=== PATIENT | male | born 1970 | race African-American/Black ===

== ENCOUNTER 2022-09-09 11:55 | Day surgery (SDC) | payer BC ==
[2022-09-08 11:10] VITALS: BMI 31.6
[~2022-09-09 11:55] MED LIST: DEXAMETHASONE SOD PHOSPHATE 4 MG/ML 1 ML VIAL IV ONE; HYDROmorphone 0.5 MG/0.5 ML SYRINGE IVP PRN; LACTATED RINGERS 1,000 ML IV SCH; ONDANSETRON 4 MG/2 ML VIAL IVP ONE
[2022-09-09] MEDS ORDERED: LACTATED RINGERS 1,000 ML IV ONE (12:28)
[2022-09-09] MEDS ORDERED: ePHEDrine 50 MG/ML 1 ML VIAL ONE (13:58)
[2022-09-09] MEDS ORDERED: HYDROmorphone (PF) 1 MG/ML ONE (13:58)
[2022-09-09] MEDS ORDERED: LIDOCAINE 2% INJ 20 MG/ML (2 ML VIAL) ONE (13:58)
[2022-09-09] MEDS ORDERED: MIDAZOLAM 2 MG/2 ML VIAL ONE (13:58)
[2022-09-09] MEDS ORDERED: fentaNYL (PF) 50 MCG/ML 2 ML AMP ONE (13:58)
[2022-09-09] MEDS ORDERED: PROPOFOL 10 MG/ML 20 ML VIAL IV ONE (13:58)
[2022-09-09] MEDS ORDERED: BUPIVACAINE (PF) 0.25% 30 ML VIAL SQ ONE ×3 (14:17→14:57)
[2022-09-09 15:15] VITALS: RESP 16; TEMP 97.3
--- NOTE | 2022-09-09 15:15 | P.OP ---
Date of Procedure: 09/09/22 Preoperative Diagnosis: Hallux limitus right foot Postoperative Diagnosis: Same Procedure(s) Performed: Ricketts bunionectomy right foot Anesthesia: GETA Surgeon: Mark Haro Indications for Procedure: pain with ambulation and use of enclosed shoe gear Operative Findings: Degenerative arthritis first metatarsal phalangeal joint Description of Procedure: On the date of surgery the patient was taken to the operating room in good condition placed on the operating table in supine position where an IV was started and LMA anesthesia was administered. The patient's right foot and ankle were then prepped and draped in the usual aseptic manner and over heavy web roll padding an ankle tourniquet was placed above the malleoli of the patient's right ankle the patient's right foot and ankle were then elevated and exsanguinated of blood and after approximately 1 minutes. A time the ankle tourniquet was inflated to approximately 250 mmHg At this time attention was directed to the dorsal aspect of the first metatarsal phalangeal joint where an approximately 6 cm dorsal linear incision was made the incision was deepened via sharp dissection down through the level of the subcutaneous tissue layers all neurovascular structures encountered were identified isolated and were retracted and any bleeding vessels were clamped and electrocauterized dissection was then carried deep down to level PERIOSTEAL STRUCTURES OVERLYING THE FIRST METATARSAL PHALANGEAL JOINT THESE WERE INCISED IN LINE WITH THE ORIGINAL SKIN INCISION AND UNDERSCORED AND RETRACTED FROM THE UNDERLYING BONE SPANNING THE LENGTH OF THE FIRST METATARSAL PHALANGEAL JOINT A FLAP WAS THEN FASHIONED ALONG THE DISTAL MEDIAL ASPECT OF THE PROXIMAL PHALANX TO BE INTERPOSED BETWEEN THE PROXIMAL PHALANX AND THE HEAD OF THE FIRST METATARSAL. LYSING OSCILLATING BONE SAW THE HYPEROSTOSIS PRESENT ON THE MEDIAL SIDE OF THE FIRST METATARSAL PHALANGEAL JOINT WAS RESECTED FLUSH IN LINE WITH THE SHAFT OF THE FIRST METATARSAL AND HYPERTROPHIED BONE AND BONE OSTEOPHYTES ON THE DORSAL ASPECT OF THE METATARSAL HEAD WERE AGAIN DOWN TO normal level metatarsal shaft the base of the proximal phalanx was then resected into degree angle to the shaft of the proximal phalanx and removed in total from the surgical site the osteotomy dated was left a little greater on the distal aspect to make up for disposition of the first metatarsal head. Throughout the surgical procedure copious amounts of sterile saline solution was used to irrigate the surgical site passed a structures were then coaptated and maintained a sewing the flap created along the medial side of the proximal phalanx to the lateral capsule metatarsal phalangeal joint remaining capsular and periosteal structures were coaptated and maintained utilizing combination of 201 3-0 Vicryl suture was then closed utilizing 4-0 nylon. Adaptic was used to cover the incision with sterile 4 x 4's four-inch conformer and 4 inch Coban ankle tourniquet to the patient's right ankle was deflated and adequate hemostatic return was seen in all digits of the right foot the patient tolerated the surgery and anesthesia well was taken recovery room in good postoperative condition
[2022-09-09 16:08] VITALS: BP 150/88; PULSE 82
== END 2022-09-09 16:36 | disposition home or self-care (01) ==
LOC: OR 11:55
PROVIDERS: ATTEND Podiatrist Foot & Ankle Surgery
DX: M19.071 Primary osteoarthritis, right ankle and foot (principal); M20.5X1 Other deformities of toe(s) (acquired), right foot; Z79.1 Long term (current) use of non-steroidal anti-inflammatories (NSAID)
CPT/HCPCS: 28292; J2250; J1100; J0690; J2405; J3010; J1170; J2704; J2001

== ENCOUNTER 2023-01-21 09:27 | Day surgery (SDC) | payer BC ==
[2023-01-20 11:29] VITALS: BMI 27.5
[~2023-01-21 09:27] MED LIST changes: -DEXAMETHASONE SOD PHOSPHATE 4 MG/ML 1 ML VIAL IV ONE; -HYDROmorphone 0.5 MG/0.5 ML SYRINGE IVP PRN; -ONDANSETRON 4 MG/2 ML VIAL IVP ONE
[2023-01-21 10:19] VITALS: TEMP 97.4
[2023-01-21] MEDS ORDERED: PROPOFOL 10 MG/ML 20 ML VIAL IV ONE (11:53)
[2023-01-21] MEDS ORDERED: LIDOCAINE 2% INJ 20 MG/ML (2 ML VIAL) ONE (11:53)
--- NOTE | 2023-01-21 12:00 | P.GSHP ---
History of Present Illness H&P Date: 01/21/23 Chief Complaint: Screening colonoscopy Is a 52-year-old male presents today for screening colonoscopy. Patient denies any significant GI complaints. Past Medical History Past Medical History: Osteoarthritis (OA) History of Any Multi-Drug Resistant Organisms: None Reported Past Surgical History: Orthopedic Surgery Additional Past Surgical History / Comment(s): Lt Knee surgery- ARTHROSCOPIC, LEFT SHOULDER SURGERY, BUNIONECTOMY-RIGHT Past Anesthesia/Blood Transfusion Reactions: No Reported Reaction Past Psychological History: No Psychological Hx Reported Smoking Status: Never smoker Past Alcohol Use History: Occasional Past Drug Use History: None Reported - Past Family History Mother Family Medical History: No Reported History Medications and Allergies Home Medications Medication Instructions Recorded Confirmed Type No Known Home Medications 01/20/23 01/20/23 History Allergies Allergy/AdvReac Type Severity Reaction Status Date / Time No Known Allergies Allergy Verified 01/21/23 10:09 Surgical - Exam Vital Signs Temp Pulse Resp BP Pulse Ox 97.4 F L 61 18 153/83 98 01/21/23 10:15 01/21/23 10:15 01/21/23 10:15 01/21/23 10:15 01/21/23 10:15 - General well developed, well nourished, no distress - Eyes PERRL - ENT normal pinna - Neck no masses - Respiratory normal expansion - Cardiovascular Rhythm: regular - Abdomen Abdomen: soft, non tender Assessment and Plan Assessment: We'll perform screening colonoscopy
--- NOTE | 2023-01-21 12:10 | P.OP ---
Date of Procedure: 01/21/23 Preoperative Diagnosis: Screening: Postoperative Diagnosis: Normal colonoscopy Procedure(s) Performed: Colonoscopy Anesthesia: MAC Surgeon: Zurdo Lance Pathology: none sent Condition: stable Disposition: PACU Description of Procedure: PROCEDURE: The patient was placed on the endoscopy table in the lateral position. Digital rectal examination was performed which revealed no abnormalities. The prostate was symmetrical without nodules. Flexible colonoscope was then placed in the patient's anus and passed throughout the entire colon. The ileocecal valve was visualized. The cecum, ascending, transverse, descending and sigmoid colon were normal. The rectum was normal as well. There were no masses, polyps or diverticula noted in the entire colon. SUMMARY OF FINDINGS: Normal colonoscopy.
[2023-01-21 12:25] VITALS: RESP 16
[2023-01-21 12:39] VITALS: BP 143/78; PULSE 60
== END 2023-01-21 12:42 | disposition home or self-care (01) ==
LOC: ORWHC2ENDO 09:27
PROVIDERS: ATTEND Surgery
DX: Z12.11 Encounter for screening for malignant neoplasm of colon (principal); F12.90 Cannabis use, unspecified, uncomplicated; M19.90 Unspecified osteoarthritis, unspecified site; F10.20 Alcohol dependence, uncomplicated
CPT/HCPCS: 45378; J2704; J2001

== ENCOUNTER → 2023-07-14 | Day surgery (SDC) | payer BC ==
[~2023-07-14] MED LIST changes: +BUPIVACAINE (PF) 0.25% 30 ML VIAL SQ ONE; +DEXAMETHASONE SOD PHOSPHATE 4 MG/ML 1 ML VIAL IV ONE; +GLYCOPYRROLATE 0.2 MG/ML 2 ML VIAL ONE; +HYDROmorphone 0.5 MG/0.5 ML SYRINGE IVP PRN; +KETAMINE HCL IN 0.9 % NACL 50 MG/5 ML SYRINGE ONE; +LIDOCAINE 1% (10MG/ML) FOR IV START INTRADERMA PRN; +LIDOCAINE 1% INJ 10MG/ML (20 ML MDV) SQ ONE; +MIDAZOLAM 2 MG/2 ML VIAL ONE; +ONDANSETRON 4 MG/2 ML VIAL IVP ONE; +PROPOFOL 10 MG/ML 20 ML VIAL IV ONE; +droPERidol 5 MG/2 ML VIAL IVP ONE; +fentaNYL (PF) 50 MCG/ML 2 ML AMP ONE
[2023-07-14 15:23] VITALS: RESP 16; TEMP 97
--- NOTE | 2023-07-14 15:25 | P.OP ---
Date of Procedure: 07/14/23 Preoperative Diagnosis: Hallux limitus left foot Postoperative Diagnosis: Same Procedure(s) Performed: Ricketts bunionectomy procedure left foot Surgeon: Mark Haro Indications for Procedure: Pain and limited motion first MPJ left foot Operative Findings: Severe degenerative arthritis first metatarsal phalangeal joint left foot Description of Procedure: On the date of surgery the patient was taken to the operating room in good condition placed on the operating table in supine position where an IV was started and adequate IV anesthetic agents were utilized anesthesia was then further supplemented with 12 mL of 0.25% plain Marcaine given in a Linn block to the first ray complex of the patient's left foot. The patient's left foot and ankle were then prepped and draped in the usual aseptic manner. Over heavy web roll padding an ankle tourniquet was placed above the malleoli of the patient's left ankle. Left foot and ankle were then elevated and exsanguinated of blood and after 2 minutes. A time the ankle tourniquet was inflated to 250 mmHg. At this time attention was directed to the dorsal aspect of the first metatarsal phalangeal joint where an approximately 6.5 cm dorsal linear incision was made the incision was deepened via sharp dissection down through the level of subcutaneous tissue layers all neurovascular structures encountered were identified isolated and were retracted and any bleeding vessels were clamped and electrocauterized dissection was then carried deep via sharp and blunt technique down to the level PERIOSTEAL STRUCTURES OVERLYING THE FIRST METATARSAL PHALANGEAL JOINT THESE WERE INCISED IN LINE WITH THE ORIGINAL SKIN INCISION AND UNDERSCORED AND RETRACTED FROM THE UNDERLYING BONE FLAP WAS THEN DISSECTED THE PROXIMAL PHALANX AREA BE USED THIS SOFT TISSUE SPACER AND THE PROCEDURE THROUGHOUT THE SURGERY COPIOUS AMOUNTS OF STERILE SALINE SOLUTION WAS USED TO IRRIGATE THE SURGICAL SITE. FIGHTS WERE THEN RESECTED FLUSH OF THE FIRST METATARSAL PHALANGEAL JOINT AND REMOVED IN TOTAL FROM THE SURGICAL SITE AN OBLIQUE OSTEOTOMY WAS THEN PERFORMED AT THE BASE OF THE PROXIMAL PHALANX WITH THE MEDIAL SIDE BENDING FARTHER DISTALLY THAN THE LATERAL SIDE TO TRY TO CORRECT THE VALGUS DEFORMITY PRESENT OF THE GREAT TOE THE OSTEOTOMY WAS THROUGH AND THROUGH OSTEOTOMY IN THE BASE OF PROXIMAL PHALANX WAS REMOVED IN TOTAL FROM THE SURGICAL SITE Periosteal Flap Was Then Sutured to the Lateral Side of the Joint Capsule of the First Metatarsal Phalangeal Joint Subcutaneous Tissues Were Coaptated and Maintained Utilizing 201 3-0 Vicryl Skin Was Then Closed Utilizing 4-0 Nylon Simple Interrupted Suture Surgical Site Was Covered with Adaptic Kerlix Fluffs Four-Inch Conformer and 4 Inch Coban an Ankle Tourniquet to the Patient's Left Foot Was Deflated Adequate Hemostatic Return Was Seen in All Digits of the Patient's Left Foot.
[2023-07-14 16:19] VITALS: BP 135/82; PULSE 50
== END ==
LOC: OR 11:37
PROVIDERS: ATTEND Podiatrist Foot & Ankle Surgery
DX: M20.5X2 Other deformities of toe(s) (acquired), left foot (principal); F12.90 Cannabis use, unspecified, uncomplicated; Z79.899 Other long term (current) drug therapy
CPT/HCPCS: 28292; J2250; J1100; J0690; J2405; J2001; J3010; J2704; J0665

== ENCOUNTER 2024-12-22 11:37 | Emergency (ER) | payer BC ==
[2024-12-22 12:52] LABS: Appearance,Urine Cloudy (Clear); Bacteria,Urine Occasional /hpf; Bilirubin,Urine Negative (Negative); Blood,Urine Large (Negative); Color,Urine Light Yellow; Glucose,Urine (UA) Negative (Negative); Ketones,Urine Negative (Negative); Leukocyte Esterase,Urine Large (Negative); Mucus,Urine Rare /hpf; Nitrite,Urine Negative (Negative); PH, Urine 5.5 (5.0-8.0); Protein,Urine 1+ (Negative); RBC,Urine >182 /hpf (0-5); Specific Gravity,Urine 1.012 (1.001-1.035); Squamous Epithelial Cell,Urine 1 /hpf (0-4); Urobilinogen,Urine <2.0 mg/dL (<2.0); WBC,Urine >182 /hpf (0-5)
[2024-12-22] MEDS: IBUPROFEN 800 MG TAB PO STA (13:01)
[2024-12-22] MEDS: ACETAMINOPHEN TAB 500 MG TAB PO STA (13:02)
[2024-12-22] MEDS: SODIUM CHLORIDE 0.9% 1,000 ML IV ONE (13:03)
[2024-12-22 13:08] LABS: Basophils # (A) 0.02 10*3/uL (0.00-0.10); Basophils % (A) 0.3 %; Eosinophils # (A) 0.09 10*3/uL (0.04-0.35); Eosinophils % (A) 1.3 %; HCT 40.8 % (39.6-50.0); HGB 14.2 g/dL (13.0-17.0); Lymphocytes # (A) 0.81 10*3/uL (0.90-5.00); Lymphocytes % (A) 11.7 %; MCH 28.2 pg (27.0-32.0); MCHC 34.8 g/dL (32.0-37.0); Monocytes # (A) 0.81 10*3/uL (0.20-1.00); Monocytes % (A) 11.7 %; Neutrophils # (A) 5.15 10*3/uL (1.80-7.70); Neutrophils % (A) 74.7 %; Platelet Count 210 10*3/uL (140-440); RBC 5.04 10*6/uL (4.40-5.60)
--- NOTE | 2024-12-22 13:11 | ED ---
Male Urogenital HPI - General Chief complaint: Urogenital Stated complaint: Lower Back Pain Time Seen by Provider: 12/22/24 12:19 Source: patient, RN notes reviewed Mode of arrival: ambulatory Limitations: no limitations - History of Present Illness Initial comments: This is a 54-year-old male who presents to the emergency department for lower back pain. States that the back pain started last night. Patient went to urgent care today and was diagnosed with a UTI. Denies any urinary symptoms. He does not have any pain in his abdomen, nausea, or vomiting. Denies any history of UTIs. States that when he was there he had a fever, and they advised he come here for further evaluation. - Related Data Previous Rx's Medication Instructions Recorded Cefpodoxime Proxetil [Vantin] 100 mg PO Q12HR 10 Days #20 tab 12/22/24 Ibuprofen [Motrin] 800 mg PO Q8H PRN #30 tab 12/22/24 Allergies Allergy/AdvReac Type Severity Reaction Status Date / Time No Known Allergies Allergy Verified 12/22/24 12:17 Review of Systems ROS Statement: Those systems with pertinent positive or pertinent negative responses have been documented in the HPI. ROS Other: All systems not noted in ROS Statement are negative. Past Medical History Past Medical History: Osteoarthritis (OA) Additional Past Medical History / Comment(s): rt shoulder pain, left foot pain History of Any Multi-Drug Resistant Organisms: None Reported Past Surgical History: Orthopedic Surgery Additional Past Surgical History / Comment(s): Lt Knee surgery- ARTHROSCOPIC, LEFT SHOULDER SURGERY, BUNIONECTOMY-RIGHT, colonoscopy Past Anesthesia/Blood Transfusion Reactions: No Reported Reaction Past Psychological History: No Psychological Hx Reported Smoking Status: Never smoker - Past Family History Mother Family Medical History: Cancer Additional Family Medical History / Comment(s): colon Father Family Medical History: No Reported History General Exam Limitations: no limitations General appearance: alert, in no apparent distress Head exam: Present: atraumatic, normocephalic, normal inspection Respiratory exam: Present: normal lung sounds bilaterally. Absent: respiratory distress, wheezes, rales, rhonchi, stridor Cardiovascular Exam: Present: regular rate, normal rhythm GI/Abdominal exam: Present: soft, normal bowel sounds. Absent: distended, t enderness, guarding, rebound, rigid Back exam: Absent: CVA tenderness (R), CVA tenderness (L) Neurological exam: Present: alert, oriented X3, CN II-XII intact Psychiatric exam: Present: normal affect, normal mood Skin exam: Present: warm, dry, intact, normal color. Absent: rash Course Vital Signs 12/22/24 12/22/24 12/22/24 12:11 13:50 14:52 Temperature 102.9 F H 101.2 F H 99.9 F H Pulse Rate 84 80 Respiratory 17 16 Rate Blood Pressure 148/83 138/76 O2 Sat by Pulse 96 97 Oximetry Medical Decision Making - Medical Decision Making This is a 54-year-old male who presents to the emergency department for back pain and a UTI. Was pt. sent in by a medical professional or institution? @ -No Did you speak to anyone other than the patient for history? @ -No Did you review nursing and triage notes? @ -Yes, and I agree, it is accurate with regards to the patient's symptoms. Were old charts reviewed? @ -No Differential Diagnosis? @ -Differential Back Pain: Strain, zoster, cauda equina syndrome, epidural abscess, vertebral osteomyelit is, discitis, fracture, subluxation, disc herniation, DJD, spinal stenosis, dissection, AAA, pancreatitis, peptic ulcer disease, pyelonephritis, kidney stone, this is not meant to be an all-inclusive list. EKG interpreted by me (3pts min.)? @ -Not obtained X-rays interpreted by me (1pt min.)? @ -Not obtained CT interpreted by me (1pt min.)? @ -CT scan of the abdomen and pelvis obtained. My interpretation identifies no ureteral calculus. U/S interpreted by me (1pt. min.)? @ -Not obtained What testing was considered but not performed? (CT, X-rays, U/S, labs)? Why? @ -None What meds were considered but not given? Why? @ -None Did you discuss the management of the patient with other professionals? @ -No Did you reconcile home meds? @ -No Was smoking cessation discussed for >3mins.? @ -No Was critical care preformed (if so, how long)? @ -No Were there social determinants of health that impacted care today? How? (Homel essness, low income, unemployed, alcoholism, drug addiction, transportation, low edu. Level, literacy, decrease access to med. care, detention, rehab)? @ -No Was there de-escalation of care discussed even if they declined? (Discuss DNR or withdrawal of care, Hospice)? @ -No What co-morbidities impacted this encounter? (DM, HTN, Smoking, COPD, CAD, Can cer, CVA, Hep., AIDS, mental health diagnosis, sleep apnea, morbid obesity)? @ -None Was patient admitted / discharged? @ -Discharged. Patient febrile on arrival with a temp of 102.9 F. Ibuprofen and Tylenol administered. Lab work unremarkable. Urinalysis consistent with infection and urine was sent for culture. CT scan of the abdomen and pelvis consistent with cystitis. He has no signs of a ureteral calculus or other acute process. I did offer admission given his age with the fever. However, patient states that he would rather go home. 2 g of ceftriaxone administered. Prescription for cefpodoxime provided along with Toradol for any discomfort. Strict return parameters discussed and he is advised to follow-up with his PCP in the next couple of days. Patient discharged home in stable condition. Case discussed with ED attending Dr. Cevallos. Return precautions reviewed in depth, the patient is instructed to return to the emergency department with any new, worsening, or concerning symptoms. Patient verbalized understanding. Undiagnosed new problem with uncertain prognosis? @ -None Drug Therapy requiring intensive monitoring for toxicity (Heparin, Nitro, Insulin, Cardizem)? @ -None Were any procedures done? @ -None Diagnosis/symptom? @ -UTI Acute, or Chronic, or Acute on Chronic? @ -Acute Uncomplicated (without systemic symptoms) or Complicated (systemic symptoms)? @ -Uncomplicated Side effects of treatment? @ -None Exacerbation, Progression, or Severe Exacerbation] @ -Not applicable Poses a threat to life or bodily function? @ -No - Lab Data Result diagrams: 12/22/24 12:56 12/22/24 12:56 Lab Results 12/22/24 12/22/24 12/22/24 Range/Units 12:30 12:56 12:56 WBC 6.90 (4.50-10.00) 10*3/uL RBC 5.04 (4.40-5.60) 10*6/uL Hgb 14.2 (13.0-17.0) g/dL Hct 40.8 (39.6-50.0) % MCV 81.0 (80.0-97.0) fL MCH 28.2 (27.0-32.0) pg MCHC 34.8 (32.0-37.0) g/dL Plt Count 210 (140-440) 10*3/uL MPV 10.0 (9.5-12.2) fL Immature Gran % (Auto) 0.3 % Neutrophils % 74.7 % Lymphocytes % 11.7 % Monocytes % 11.7 % Eosinophils % 1.3 % Basophils % 0.3 % Immature Gran # 0.02 (0.00-0.04) 10*3/uL Neutrophils # 5.15 (1.80-7.70) 10*3/uL Lymphocytes # 0.81 L (0.90-5.00) 10*3/uL Monocytes # 0.81 (0.20-1.00) 10*3/uL Eosinophils # 0.09 (0.04-0.35) 10*3/uL Basophils # 0.02 (0.00-0.10) 10*3/uL Sodium 137 (137-145) mmol/L Potassium 4.3 (3.5-5.1) mmol/L Chloride 97 L (98-107) mmol/L Carbon Dioxide 32 H (22-30) mmol/L Anion Gap 8 mmol/L BUN 17 (9-20) mg/dL Creatinine 1.22 (0.66-1.25) mg/dL Est GFR (CKD-EPI)AfAm 78 (>60 ml/min/1.73 sqM) Est GFR (CKD-EPI)NonAf 68 (>60 ml/min/1.73 sqM) Glucose 104 H (74-99) mg/dL Plasma Lactic Acid Jack (0.7-2.0) mmol/L Calcium 9.4 (8.4-10.2) mg/dL Total Bilirubin 0.7 (0.2-1.3) mg/dL AST 36 (17-59) U/L ALT 36 (4-49) U/L Alkaline Phosphatase 66 (38-126) U/L Total Protein 7.8 (6.3-8.2) g/dL Albumin 4.4 (3.5-5.0) g/dL Urine Color Light Yellow Urine Appearance Cloudy (Clear) Urine pH 5.5 (5.0-8.0) Ur Specific [place] 1.012 (1.001-1.035) Urine Protein 1+ H (Negative) Urine Glucose (UA) Negative (Negative) Urine Ketones Negative (Negative) Urine Blood Large H (Negative) Urine Nitrite Negative (Negative) Urine Bilirubin Negative (Negative) Urine Urobilinogen <2.0 (<2.0) mg/dL Ur Leukocyte Esterase Large H (Negative) Urine RBC >182 H (0-5) /hpf Urine WBC >182 H (0-5) /hpf Urine WBC Clumps Moderate H (None) /hpf Ur Squamous Epith Cells 1 (0-4) /hpf Urine Bacteria Occasional H (None) /hpf Urine Mucus Rare H (None) /hpf 12/22/24 Range/Units 12:56 WBC (4.50-10.00) 10*3/uL RBC (4.40-5.60) 10*6/uL Hgb (13.0-17.0) g/dL Hct (39.6-50.0) % MCV (80.0-97.0) fL MCH (27.0-32.0) pg MCHC (32.0-37.0) g/dL Plt Count (140-440) 10*3/uL MPV (9.5-12.2) fL Immature Gran % (Auto) % Neutrophils % % Lymphocytes % % Monocytes % % Eosinophils % % Basophils % % Immature Gran # (0.00-0.04) 10*3/uL Neutrophils # (1.80-7.70) 10*3/uL Lymphocytes # (0.90-5.00) 10*3/uL Monocytes # (0.20-1.00) 10*3/uL Eosinophils # (0.04-0.35) 10*3/uL Basophils # (0.00-0.10) 10*3/uL Sodium (137-145) mmol/L Potassium (3.5-5.1) mmol/L Chloride (98-107) mmol/L Carbon Dioxide (22-30) mmol/L Anion Gap mmol/L BUN (9-20) mg/dL Creatinine (0.66-1.25) mg/dL Est GFR (CKD-EPI)AfAm (>60 ml/min/1.73 sqM) Est GFR (CKD-EPI)NonAf (>60 ml/min/1.73 sqM) Glucose (74-99) mg/dL Plasma Lactic Acid Jack 0.9 (0.7-2.0) mmol/L Calcium (8.4-10.2) mg/dL Total Bilirubin (0.2-1.3) mg/dL AST (17-59) U/L ALT (4-49) U/L Alkaline Phosphatase (38-126) U/L Total Protein (6.3-8.2) g/dL Albumin (3.5-5.0) g/dL Urine Color Urine Appearance (Clear) Urine pH (5.0-8.0) Ur Specific [place] (1.001-1.035) Urine Protein (Negative) Urine Glucose (UA) (Negative) Urine Ketones (Negative) Urine Blood (Negative) Urine Nitrite (Negative) Urine Bilirubin (Negative) Urine Urobilinogen (<2.0) mg/dL Ur Leukocyte Esterase (Negative) Urine RBC (0-5) /hpf Urine WBC (0-5) /hpf Urine WBC Clumps (None) /hpf Ur Squamous Epith Cells (0-4) /hpf Urine Bacteria (None) /hpf Urine Mucus (None) /hpf - Radiology Data Radiology results: report reviewed, image reviewed Disposition Clinical Impression: UTI (urinary tract infection) Disposition: HOME SELF-CARE Instructions (If sedation given, give patient instructions): Urinary Tract Infection in Men (ED) Additional Instructions: Return to the emergency department with any new, worsening, or concerning symptoms. Take the antibiotic as prescribed for 10 days. Alternate with ib uprofen and Tylenol as needed for fevers and discomfort. Follow up with your primary care provider in 1-2 days. Prescriptions: Ibuprofen [Motrin] 800 mg PO Q8H PRN #30 tab PRN Reason: Pain Cefpodoxime Proxetil [Vantin] 100 mg PO Q12HR 10 Days #20 tab Is patient prescribed a controlled substance at d/c from ED?: No Referrals: Tray Nunez MD [Primary Care Provider] - 1-2 days Time of Disposition: 14:26
[2024-12-22 13:18] LABS: ALT 36 U/L (4-49); AST 36 U/L (17-59); African American GFR (CKD) 78 (>60 ml/min/1.73 sqM); Albumin 4.4 g/dL (3.5-5.0); Alkaline Phosphatase 66 U/L (38-126); Anion Gap 8 mmol/L; Blood Urea Nitrogen 17 mg/dL (9-20); Calcium 9.4 mg/dL (8.4-10.2); Carbon Dioxide 32 mmol/L (22-30); Chloride 97 mmol/L (98-107); Glucose 104 mg/dL (74-99); Non-African American GFR(CKD) 68 (>60 ml/min/1.73 sqM); Potassium 4.3 mmol/L (3.5-5.1); Sodium 137 mmol/L (137-145); Total Bilirubin 0.7 mg/dL (0.2-1.3); Total Protein 7.8 g/dL (6.3-8.2)
--- NOTE | 2024-12-22 14:13 | CT ---
EXAMINATION TYPE: CT abdomen pelvis wo con CT DLP: 719.1 mGycm, Automated exposure control for dose reduction was used. DATE OF EXAM: 12/22/2024 2:01 PM COMPARISON: None CLINICAL INDICATION:Male, 54 years old with history of Back pain, hematuria; hematuria, flank pain TECHNIQUE: Standard CT of the abdomen and pelvis without IV or oral contrast. Lack of IV or oral co ntrast limits evaluation of solid and hollow organ viscera. Coronal and sagittal reformats were perfo rmed. FINDINGS: LOWER CHEST: Unremarkable noncontrast appearance ABDOMEN LIVER: Unremarkable noncontrast appearance GALLBLADDER AND BILE DUCTS: Unremarkable noncontrast appearance PANCREAS: Unremarkable noncontrast appearance SPLEEN: Unremarkable noncontrast appearance ADRENAL GLANDS: Unremarkable noncontrast appearance. KIDNEYS AND URETERS: No evidence of hydronephrosis or renal calculus. Right renal 2.9 cm simple appea ring cyst. No perinephric fat stranding or hydroureter. PELVIS BLADDER: Circumferential wall thickening measuring up to 6 mm with perivesicular fat stranding. REPRODUCTIVE: Unremarkable noncontrast appearance ABDOMEN & PELVIS STOMACH AND BOWEL: Stomach and duodenum are unremarkable. No focal bowel wall thickening or surroundi ng inflammatory changes. The appendix is within normal limits. No evidence of bowel obstruction. PERITONEUM: No evidence of pneumoperitoneum or free fluid. VASCULATURE: No evidence of aortic aneurysm. MUSCULOSKELETAL: No acute osseous abnormalities. Degenerative changes of the pubic symphysis. Multile vishal degenerative disc disease most pronounced at L5-S1. LYMPH NODES: No gross evidence for lymphadenopathy. SOFT TISSUE/ABDOMINAL WALL: Unremarkable IMPRESSION: Circumferential wall thickening with surrounding fat stranding involving the urinary bladder. Correla te with urinalysis for cystitis. No evidence of obstructive uropathy. [facility], , 12/22/2024 2:11 PM
[2024-12-22] MEDS: cefTRIAXone IN SWFI 1,000 MG/10 ML SYRINGE IVP STA (14:39)
[2024-12-22] MEDS: traMADol 50 MG STARTER PACK 3 TAB BTL PO STA (14:50)
[2024-12-22 14:53] VITALS: BP 138/76; PULSE 80; RESP 16; TEMP 99.9
== END 2024-12-22 14:54 | disposition home or self-care (01) ==
LOC: EC 11:37
DX: N39.0 Urinary tract infection, site not specified (principal)
CPT/HCPCS: 36415; 80053; 83605; 85025; 81001; 87086; 74176; 99284; 96374; 96361; J0696; 87077; 87186